=== PATIENT | female | born 1995 | race Two or more races ===

== ENCOUNTER 2019-06-08 21:55 | Emergency (ER) | payer BC, OTHER ==
[~2019-06-08] VITALS: Ht 162.6 cm; Wt 99.8 kg
--- NOTE | 2019-06-08 22:10 | NUR ---
ED Nurse Note: pt walked to ed from home C/O BUTTOCK/LOWER BACK PAIN 10/04 S/P FALL FROM 10 FLIGHT OF STAIRS ON 06/06. PT DENIES LOC, NO INJURY/TRAUMA NOTED, DENIES SYNCOPE ,NVD, AAOX4, AMBULATORY. PT ALSO COMPLAINS OF R ELBOW PAIN.
--- NOTE | 2019-06-08 22:13 | NUR ---
ED Nurse Note: PT PLACED ON MONITOR. VSS, NAD.
[2019-06-08 22:16] VITALS: BP 146/82
[2019-06-08] MEDS ORDERED: HYDROcodone/Acetamin 5/325 tab ORAL ONE (22:30)
--- NOTE | 2019-06-08 22:42 | Emergency Room Report ---
History of Present Illness General Chief Complaint: Multiple Trauma/Fall Source: Patient Present Illness HPI 23-year-old female presents with lower back pain after a fall. She states she fell down some steps yesterday after slipping. Pain is in the low back 8 out of 10 worse with movement. She has been ambulatory today. She also complains of some mild right upper extremity pain that is mild 3 out of 10 worse with movement and nonradiating. She denies any nausea, vomiting, shortness of breath. No head or neck pain. No abdominal pain. No fever or cough. She took Tylenol prior to arrival. Allergies: Coded Allergies: No Known Allergies (Unverified , 06/08/19) COVID-19 Screening Contact w/high risk pt: No Recent Travel to affected area: No Experienced COVID-19 symptoms?: No Patient History Last Menstrual Period: 05/06/19 Now: No Reviewed Nursing Documentation: PMH: Agreed; PSxH: Agreed Nursing Documentation-PMH Past Medical History: No Stated History Review of Systems All Other Systems: negative except mentioned in HPI Physical Exam Vital Signs Date Time Temp Pulse Resp B/P (MAP) Pulse Ox O2 Delivery O2 Flow Rate FiO2 06/08/19 22:02 98.8 124 20 142/92 (109) 94 Room Air Sp02 EP Interpretation: reviewed, normal General Appearance: well appearing, no apparent distress Head: normocephalic, atraumatic Eyes: bilateral eye PERRL, bilateral eye EOMI ENT: hearing grossly normal, moist mucus membranes Neck: full range of motion, supple, other - No midline tenderness Respiratory: lungs clear, normal breath sounds, no rhonchi, no respiratory distress, no retraction, no wheezing Cardiovascular #1: normal peripheral pulses, regular rate, rhythm, no murmur Gastrointestinal: non tender, soft, non-distended, no guarding Musculoskeletal: other - Full range of motion of right upper extremity. Small bruising noted to medial aspect of upper right arm. No deformity. 2+ pulses throughout. No step-offs or deformities noted throughout the lumbar or thoracic spine however she did have tenderness over the L5 region. Neurologic: alert, oriented x3, no focal defects Skin: normal color, warm/dry Medical Decision Making Diagnostic Impression: Primary Impression: Contusion of lower back Additional Impression: Contusion of right upper extremity ER Course Differential diagnosis included but not limited to back contusion, radiculopathy , compression fracture, to name a few. CT scan of the lumbar spine and pelvis ordered. Patient was neurologically intact on exam. No acute distress. Nontoxic-appearing. Ambulatory in the ER. Pain control given. CT scans did not demonstrate any evidence of acute fracture or subluxation in the lumbar spine or pelvis. On my reassessment patient's pain improved. No acute distress. Stable for discharge home with pain control, follow-up with primary doctor and return precautions. 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 No acute fracture, spondylolisthesis or pars defect. Last Vital Signs Date Time Temp Pulse Resp B/P (MAP) Pulse Ox O2 Delivery O2 Flow Rate FiO2 06/08/19 22:16 120 20 Room Air 06/08/19 22:16 98.8 146/82 98 Disposition: HOME, SELF-CARE Condition: Improved Scripts Hydrocodone Bit/Acetaminophen 5-325* (NORCO 5-325 TABLET*) 1 Each Tablet 1 TAB ORAL Q6H PRN for Pain Scale (6-10), #6 TAB 0 Refills Prov: Dante Mckeon M.D. 06/08/19 Ibuprofen* (MOTRIN*) 600 Mg Tablet 600 MG ORAL Q6H PRN for For Pain, #30 TAB 0 Refills Prov: Dante Mckeon M.D. 06/08/19 Referrals: NOT CHOSEN [facility]/,REFERRING (PCP) Dante Mckeon M.D. Jun 08, 2019 22:42
--- NOTE | 2019-06-08 23:00 | NUR ---
ED Nurse Note: pt went for ct
--- NOTE | 2019-06-08 23:15 | NUR ---
ED Nurse Note: pt back from ct
--- NOTE | 2019-06-08 23:16 | Diagnostic Imaging Report ---
EXAM: CT Pelvis Without Intravenous Contrast CLINICAL HISTORY: TRAUMA TECHNIQUE: Axial computed tomography images of the pelvis without intravenous contrast. CTDI is 38.4 mGy and DLP is 1243.8 mGy-cm. One or more of the following dose reduction techniques were used: automated exposure control, adjustment of the mA and/or kV according to patient size, use of iterative reconstruction technique. COMPARISON: None. FINDINGS: Bowel: Unremarkable. No obstruction. No mucosal thickening. Appendix: No findings to suggest acute appendicitis. Intraperitoneal space: Anteverted uterus. Small right-sided ovarian cyst measuring 2 cm. Remainder of the intrapelvic structures unremarkable with no free fluid. No free air. Bladder: Decompression of the urinary bladder otherwise urinary bladder unremarkable. No stones. Reproductive: Unremarkable as visualized. Bones/joints: No acute fracture. No dislocation. Soft tissues: Unremarkable. Vasculature: Unremarkable. No lower abdominal aortic aneurysm. Lymph nodes: Unremarkable. No enlarged lymph nodes. IMPRESSION: No acute fracture or subluxation seen.
--- NOTE | 2019-06-08 23:23 | Diagnostic Imaging Report ---
EXAM: CT Lumbar Spine Without Intravenous Contrast CLINICAL HISTORY: TRAUMA TECHNIQUE: Axial computed tomography images of the lumbar spine without intravenous contrast. CTDI is 38.4 mGy and DLP is 1243.8 mGy-cm. One or more of the following dose reduction techniques were used: automated exposure control, adjustment of the mA and/or kV according to patient size, use of iterative reconstruction technique. COMPARISON: None. FINDINGS: Vertebrae: Normal alignment of the lumbar vertebral bodies with no spondylolisthesis. No pars defect. No acute fracture. No scoliosis. Discs/spinal canal/neural foramina: Mild broad-based central disc bulge at L5-S1 with mild calcification along the posterior aspect of the disc space, nonspecific. No spinal canal stenosis. Soft tissues: Unremarkable. IMPRESSION: Mild degenerative disease at L5-S1. No acute fracture, spondylolisthesis or pars defect.
[2019-06-08] MEDS ORDERED: NORCO 5-325 TA1 EAC1 ORAL (23:46)
[2019-06-08] MEDS ORDERED: IBUPROFEN600 M1 ORAL (23:46)
[2019-06-08 23:47] VITALS: BP 136/77
[2019-06-08 23:55] VITALS: BP 136/77
--- NOTE | 2019-06-08 23:55 | NUR ---
ER DISCHARGE NOTE: Patient is cleared to be discharged per ERMD, pt is aox4, on room air, with stable vital signs. pt was given dc and prescription instructions, pt was able to verbalize understanding, pt id band removed without complications. pt is able to ambulate with steady gait. pt took all belongings.
== END 2019-06-08 23:55 | disposition home or self-care (01) ==
LOC: EMR 22:05
DX: S30.0XXA Contusion of lower back and pelvis, initial encounter (principal); S40.021A Contusion of right upper arm, initial encounter; W01.0XXA Fall on same level from slipping, tripping and stumbling without subsequent striking against object, initial encounter; Y92.9 Unspecified place or not applicable; M51.37 Other intervertebral disc degeneration, lumbosacral region
CPT/HCPCS: 72131; 72192; 81025; 99284